=== PATIENT | female | born 1995 | race Caucasian/White ===

== ENCOUNTER 2018-03-21 12:29 | Emergency (ER) | payer OTHER ==
[~2018-03-21] VITALS: Ht 154.9 cm; Wt 95.0 kg
[2018-03-21 12:43] VITALS: BP 131/66; PULSE 108; RESP 19; TEMP 98.6; O2SAT 100
[2018-03-21] MEDS ORDERED: SODIUM CHLORIDE 0.9% FLUSH 10 ML FLUSH IV FLUSH PRN (13:45)
--- NOTE | 2018-03-21 14:27 | PD ---
HPI . Abdominal pain Chief Complaint: Abdominal Pain Time Seen by Provider: 13:16 Travel History International Travel<30 days: No Contact w/Intl Traveler<30days: No Traveled to known affect area: No History of Present Illness HPI Patient presents with a chief complaint of abdominal pain. Onset was yesterday. The only associated symptom is some nausea. No fever. No vomiting or diarrhea. No urinary tract symptoms. No modifying factors. Pain rated 6/ 10. PFSH Past Medical History Medical History: Denies Significant Hx Diminished Hearing: No Immunizations Current: Yes Tetanus Vaccination: Unknown Influenza Vaccination: No ?: LMP: 01/2018 : 5 Para: 3 Miscarriage: 1 : 0 Past Surgical History Section: Yes (C-SECTIONS X 2 ) Gynecologic Surgery: Yes ( X 2 ) Tonsillectomy: Yes Social History Alcohol Use: No Tobacco Use: No (quit 4 MONTHS AGO ) Substance Use: No Allergies-Medications (Allergen,Severity, Reaction): Coded Allergies: No Known Allergies (Unverified , 03/21/18) Reported Meds & Prescriptions Reported Meds & Active Scripts Active No Active Prescriptions or Reported Medications Review of Systems Except as stated in HPI: all other systems reviewed are Neg Physical Exam Narrative GENERAL: The patient is smiling and is in no distress. SKIN: warm/dry. HEAD: Normocephalic. Atraumatic. EYES: Pupils equal and round. No scleral icterus. No injection or drainage. ENT: No nasal bleeding or discharge. Mucous membranes pink and moist. NECK: Trachea midline. Full range of motion without pain.. CARDIOVASCULAR: Regular rate and rhythm. Heart sounds normal. RESPIRATORY: No accessory muscle use. Clear to auscultation. Breath sounds equal bilaterally. GASTROINTESTINAL: Abdomen soft. Nontender. Bowel sounds present. Nondistended. MUSCULOSKELETAL: No obvious deformities. NEUROLOGICAL: Awake and alert. No obvious cranial nerve deficits. Motor grossly within normal limits. Normal speech. PSYCHIATRIC: Appropriate mood and affect; insight and judgment normal. Data Data Last Documented VS Vital Signs Date Time Temp Pulse Resp B/P (MAP) Pulse Ox O2 Delivery O2 Flow Rate FiO2 03/21/18 12:43 98.6 108 19 131/66 (87) 100 Orders Orders Complete Blood Count With Diff (03/21/18 13:42) Comprehensive Metabolic Panel (03/21/18 13:42) Lipase (03/21/18 13:42) Urinalysis - C+S If Indicated (03/21/18 13:42) Iv Access Insert/Monitor (03/21/18 13:42) Ecg Monitoring (03/21/18 13:42) Oximetry (03/21/18 13:42) Sodium Chloride 0.9% Flush (Ns Flush) (03/21/18 13:45) Ed Urine Pregnancytest Poc (03/21/18 13:42) Beta Hcg (Quant/Titer) (03/21/18 14:28) Us Pelvis (Ques Preg/Ectopic) (03/21/18 14:27) Ed Discharge Order (03/21/18 17:44) Labs Laboratory Tests Test 03/21/18 14:10 03/21/18 14:15 White Blood Count 8.6 TH/MM3 Red Blood Count 5.61 MIL/MM3 Hemoglobin 11.8 GM/DL Hematocrit 36.8 % Mean Corpuscular Volume 65.6 FL Mean Corpuscular Hemoglobin 21.0 PG Mean Corpuscular Hemoglobin Concent 32.0 % Red Cell Distribution Width 15.5 % Platelet Count 258 TH/MM3 Mean Platelet Volume 9.5 FL Neutrophils (%) (Auto) 64.9 % Lymphocytes (%) (Auto) 24.7 % Monocytes (%) (Auto) 8.3 % Eosinophils (%) (Auto) 1.8 % Basophils (%) (Auto) 0.3 % Neutrophils # (Auto) 5.6 TH/MM3 Lymphocytes # (Auto) 2.1 TH/MM3 Monocytes # (Auto) 0.7 TH/MM3 Eosinophils # (Auto) 0.2 TH/MM3 Basophils # (Auto) 0.0 TH/MM3 CBC Comment DIFF FINAL Differential Comment Blood Urea Nitrogen 13 MG/DL Creatinine 0.67 MG/DL Random Glucose 73 MG/DL Total Protein 6.8 GM/DL Albumin 3.2 GM/DL Calcium Level 8.4 MG/DL Alkaline Phosphatase 98 U/L Aspartate Amino Transf (AST/SGOT) 13 U/L Alanine Aminotransferase (ALT/SGPT) 17 U/L Total Bilirubin 0.4 MG/DL Sodium Level 141 MEQ/L Potassium Level 3.9 MEQ/L Chloride Level 108 MEQ/L Carbon Dioxide Level 26.0 MEQ/L Anion Gap 7 MEQ/L Estimat Glomerular Filtration Rate 112 ML/MIN Lipase 81 U/L Human Chorionic Gonadotropin, Quant 43069 MIU/ML Urine Color YELLOW Urine Turbidity HAZY Urine pH 7.5 Urine Specific [place] 1.028 Urine Protein TRACE mg/dL Urine Glucose (UA) NEG mg/dL Urine Ketones NEG mg/dL Urine Occult Blood NEG Urine Nitrite NEG Urine Bilirubin NEG Urine Urobilinogen 4.0 MG/DL Urine Leukocyte Esterase NEG Urine RBC 1 /hpf Urine WBC 1 /hpf Urine Squamous Epithelial Cells 8 /hpf Urine Amorphous Sediment FEW Urine Mucus FEW /lpf Microscopic Urinalysis Comment CULT NOT INDICATED MDM Medical Decision Making Medical Screen Exam Complete: Yes Emergency Medical Condition: Yes Differential Diagnosis Differential diagnosis of abdominal pain includes but is not limited to gastritis, pancreatitis, hepatitis, gastroenteritis, constipation, urinary retention, peptic ulcer disease, diverticulitis or appendicitis Narrative Course This patient presents with a chief complaint of diffuse abdominal pain which started yesterday. She looks very comfortable. Her abdominal exam is benign. Her test is positive. CBC & BMP Diagram 03/21/18 14:10 Total Protein 6.8, Albumin 3.2 L, Calcium Level 8.4 L, Alkaline Phosphatase 98, Aspartate Amino Transf (AST/SGOT) 13 L, Alanine Aminotransferase (ALT/SGPT) 17, Total Bilirubin 0.4 quant 78K US>>viable 7.6 fetus Diagnosis Primary Impression: Abdominal pain Qualified Codes: R10.84 - Generalized abdominal pain Additional Impression: Qualified Codes: Z34.90 - Encounter for supervision of normal , unspecified, unspecified trimester Patient Instructions: Abdominal Pain (ED), Abdominal Pain in (ED), General Instructions Scripts No Active Prescriptions or Reported Meds Disposition: 01 DISCHARGE HOME Condition: Stable Leslie Medina MD March 21, 2018 14:27
[2018-03-21 14:33] LABS: AUTOMATED NEUTROPHIL # 5.6 TH/MM3 (1.8-7.7); BASOPHIL % 0.3 % (0.0-2.0); EOSINOPHIL # 0.2 TH/MM3 (0-0.4); EOSINOPHIL % 1.8 % (0.0-4.0); HEMATOCRIT 36.8 % (35.0-46.0); HEMOGLOBIN 11.8 GM/DL (11.6-15.3); LYMPH % 24.7 % (9.0-44.0); LYMPHOCYTE # 2.1 TH/MM3 (1.0-4.8); MEAN CELL VOLUME 65.6 FL (80.0-100.0); MEAN PLATELET VOLUME 9.5 FL (7.0-11.0); MONO % 8.3 % (0.0-8.0); MONOCYTE # 0.7 TH/MM3 (0-0.9); NEUT % 64.9 % (16.0-70.0); PLATELET COUNT 258 TH/MM3 (150-450); RED BLOOD COUNT 5.61 MIL/MM3 (4.00-5.30); RED CELL DISTRIBUTION WIDTH 15.5 % (11.6-17.2); WHITE BLOOD COUNT 8.6 TH/MM3 (4.0-11.0)
[2018-03-21 14:41] LABS: AMORPHOUS SEDIMENT, URINE FEW; BILIRUBIN, URINE NEG (NEG); BLOOD, URINE NEG (NEG); GLUCOSE,URINE NEG (NEG); KETONE, URINE NEG (NEG); MUCUS URINE FEW /lpf (OCC); NITRITE,URINE NEG (NEG); PH, URINE 7.5 (5.0-8.5); SQUAMOUS EPITHELIAL CELL URINE 8 /hpf (0-5); URINE COLOR YELLOW (YELLW/STRAW); URINE LEUKOCYTE ESTERASE NEG (NEG)
[2018-03-21 14:57] LABS: ALBUMIN 3.2 GM/DL (3.4-5.0); ALT (GPT) 17 U/L (9-42); AST (GOT) 13 U/L (16-38); BLOOD UREA NITROGEN 13 MG/DL (7-18); CALCIUM 8.4 MG/DL (8.5-10.1); CHLORIDE 108 MEQ/L (98-107); CREATININE 0.67 MG/DL (0.50-1.00); GLOMERULAR FILTRATION RATE 112 ML/MIN (>89); GLUCOSE,RANDOM 73 MG/DL (74-106); SODIUM (NA) 141 MEQ/L (136-145)
[2018-03-21 14:58] LABS: ALKALINE PHOSPHATASE 98 U/L (45-117); TOTAL BILIRUBIN ADULT 0.4 MG/DL (0.2-1.0); TOTAL PROTEIN 6.8 GM/DL (6.4-8.2)
--- NOTE | 2018-03-21 17:35 | RADRPT ---
EXAM DATE/TIME: 03/21/2018 14:51 [facility] COMPARISON: No previous studies available for comparison. INDICATIONS : Pelvic pain. LAB(S): Beta-hC,981 MEDICAL HISTORY : . SURGICAL HISTORY : section. Tonsillectomy. ENCOUNTER: Initial ACUITY: 2 days PAIN SCORE: 5/10 LOCATION: Bilateral pelvis MEASUREMENTS: UTERUS: 11.1 x 6.8 x 6.1 cm ENDOMETRIAL STRIPE: 17 mm RIGHT OVARY: 4.1 x 2.3 x 1.9 cm LEFT OVARY: 2.8 x 3.1 x 2.3 cm CROWN RUMP LENGTH: 1.5 cm = 7 WKS 6 DAYS FHR: 182 BPM FINDINGS: UTERUS: Viable intrauterine corresponding to 7 week 6 day gestation. Probable small fundal fibroid . RIGHT OVARY: Ovary contains no mass or significant cystic lesion. LEFT OVARY: Ovary contains no mass or significant cystic lesion. MISCELLANEOUS: No free fluid. CONCLUSION: Viable intrauterine 7 weeks 6 day gestation. Probable small fundal fibroid. Deepak Hernandez MD FACR on March 21, 2018 at 17:32 Board Certified Radiologist. This report was verified electronically.
--- NOTE | 2018-03-21 17:36 | PD ---
Physical Exam Narrative Received sign out from previous team to follow up US and [facility] [place]. Please see prior provider's note for further details. 22yo F who is here with with abdominal pain since yesterday. Labs reviewed, no leukocytosis. H/H normal. [facility] [place] [id number]. LFTs unremarkable. UA showed WBC 1. Culture not indicated. US showed IUP [id number]. Probable small fundal fibroid. I went to evaluate patient and inform her of the results but there was no one in the room. Informed by nurse that pt had walked out. Pt left before I saw her. Her nurse said her IV was removed. Data Data Last Documented VS Vital Signs Date Time Temp Pulse Resp B/P (MAP) Pulse Ox O2 Delivery O2 Flow Rate FiO2 03/21/18 12:43 98.6 108 19 131/66 (87) 100 Orders Orders Complete Blood Count With Diff (03/21/18 13:42) Comprehensive Metabolic Panel (03/21/18 13:42) Lipase (03/21/18 13:42) Urinalysis - C+S If Indicated (03/21/18 13:42) Iv Access Insert/Monitor (03/21/18 13:42) Ecg Monitoring (03/21/18 13:42) Oximetry (03/21/18 13:42) Sodium Chloride 0.9% Flush (Ns Flush) (03/21/18 13:45) Ed Urine Pregnancytest Poc (03/21/18 13:42) Beta Hcg (Quant/Titer) (03/21/18 14:28) Us Pelvis (Ques Preg/Ectopic) (03/21/18 14:27) Labs Laboratory Tests Test 03/21/18 14:10 03/21/18 14:15 White Blood Count 8.6 TH/MM3 Red Blood Count 5.61 MIL/MM3 Hemoglobin 11.8 GM/DL Hematocrit 36.8 % Mean Corpuscular Volume 65.6 FL Mean Corpuscular Hemoglobin 21.0 PG Mean Corpuscular Hemoglobin Concent 32.0 % Red Cell Distribution Width 15.5 % Platelet Count 258 TH/MM3 Mean Platelet Volume 9.5 FL Neutrophils (%) (Auto) 64.9 % Lymphocytes (%) (Auto) 24.7 % Monocytes (%) (Auto) 8.3 % Eosinophils (%) (Auto) 1.8 % Basophils (%) (Auto) 0.3 % Neutrophils # (Auto) 5.6 TH/MM3 Lymphocytes # (Auto) 2.1 TH/MM3 Monocytes # (Auto) 0.7 TH/MM3 Eosinophils # (Auto) 0.2 TH/MM3 Basophils # (Auto) 0.0 TH/MM3 CBC Comment DIFF FINAL Differential Comment Blood Urea Nitrogen 13 MG/DL Creatinine 0.67 MG/DL Random Glucose 73 MG/DL Total Protein 6.8 GM/DL Albumin 3.2 GM/DL Calcium Level 8.4 MG/DL Alkaline Phosphatase 98 U/L Aspartate Amino Transf (AST/SGOT) 13 U/L Alanine Aminotransferase (ALT/SGPT) 17 U/L Total Bilirubin 0.4 MG/DL Sodium Level 141 MEQ/L Potassium Level 3.9 MEQ/L Chloride Level 108 MEQ/L Carbon Dioxide Level 26.0 MEQ/L Anion Gap 7 MEQ/L Estimat Glomerular Filtration Rate 112 ML/MIN Lipase 81 U/L Human Chorionic Gonadotropin, Quant 66547 MIU/ML Urine Color YELLOW Urine Turbidity HAZY Urine pH 7.5 Urine Specific [place] 1.028 Urine Protein TRACE mg/dL Urine Glucose (UA) NEG mg/dL Urine Ketones NEG mg/dL Urine Occult Blood NEG Urine Nitrite NEG Urine Bilirubin NEG Urine Urobilinogen 4.0 MG/DL Urine Leukocyte Esterase NEG Urine RBC 1 /hpf Urine WBC 1 /hpf Urine Squamous Epithelial Cells 8 /hpf Urine Amorphous Sediment FEW Urine Mucus FEW /lpf Microscopic Urinalysis Comment CULT NOT INDICATED MDM Supervised Visit with [facility]: No Diagnosis Primary Impression: Abdominal pain Qualified Codes: R10.84 - Generalized abdominal pain Additional Impression: Qualified Codes: Z34.90 - Encounter for supervision of normal , unspecified, unspecified trimester Patient Instructions: General Instructions, Abdominal Pain (ED), Abdominal Pain in (ED) Departure Forms: Tests/Procedures Additional Instruction: Patient left before I can inform her of her results. Patient was not reevaluated since she left. Med/Other Pt SpecificInfo: No Change to Meds Scripts No Active Prescriptions or Reported Meds Disposition: 07 AGAINST MEDICAL ADVICE Condition: Stable Shanika Rider March 21, 2018 17:36
== END 2018-03-21 17:30 | disposition home or self-care (01) ==
LOC: NEPD 12:29
DX: O26.91 Pregnancy related conditions, unspecified, first trimester (principal); R10.9 Unspecified abdominal pain; R11.0 Nausea; Z3A.01 Less than 8 weeks gestation of pregnancy
CPT/HCPCS: 76700; 80053; 81001; 83690; 84702; 84703; 85025